=== PATIENT | male | born 1965 | race Caucasian/White ===

== ENCOUNTER 2016-12-11 11:03 | Emergency (ER) | payer BC ==
--- NOTE | 2016-12-11 11:42 | XR ---
EXAMINATION TYPE: XR ribs RT w pa chest x-ray DATE OF EXAM ORDERED: 12/11/2016 11:38 AM HISTORY: Pain. COMPARISON: None. FINDINGS: The lungs are overinflated but clear. Pleural spaces are clear. The heart is normal in siz e. No displaced rib fracture is seen. There is no evidence of pneumothorax. IMPRESSION: NO ACUTE INTRATHORACIC ABNORMALITY.
--- NOTE | 2016-12-11 11:54 | ED ---
General Adult HPI - General Chief complaint: Chest Pain Stated complaint: RIB PAIN/INJURY RT SIDE Time Seen by Provider: 12/11/16 11:11 Source: patient Mode of arrival: ambulatory Limitations: no limitations - History of Present Illness Initial comments: This 51-year-old white male presents with a complaint of some right lower rib pain. He states that he is trying to pull his boat in the other day. There apparently was some rough chavez. He felt a pop when he was pulling the boat and. He developed pain to his right lower ribs laterally. He states that the pain has been persistent ever since then. He further relates that it is worse with any movement, deep inspiration, or cough. He denies any direct trauma to the area. He denies any other injuries or complaints or modifying factors. He is worried about the possibility of a rib fracture. - Related Data Home Medications Medication Instructions Recorded Confirmed ALPRAZolam [Xanax] 0.25 mg PO BID PRN 12/11/16 12/11/16 buPROPion XL [Wellbutrin Xl] 300 mg PO DAILY 12/11/16 12/11/16 Previous Rx's Medication Instructions Recorded traMADol HCl [Ultram] 50 - 100 mg PO Q6H PRN #20 tab 12/11/16 Allergies Allergy/AdvReac Type Severity Reaction Status Date / Time No Known Allergies Allergy Verified 12/11/16 11:47 Review of Systems ROS Statement: Those systems with pertinent positive or pertinent negative responses have been documented in the HPI. ROS Other: All systems not noted in ROS Statement are negative. Past Medical History Past Medical History: No Reported History History of Any Multi-Drug Resistant Organisms: None Reported Past Surgical History: No Surgical Hx Reported Past Psychological History: No Psychological Hx Reported Smoking Status: Current every day smoker Past Alcohol Use History: None Reported Past Drug Use History: None Reported General Exam Limitations: no limitations General appearance: alert, in no apparent distress Respiratory exam: Present: normal lung sounds bilaterally, chest wall tenderness (There is tenderness present to the right lower ribs laterally. There is no ecchymosis or subcutaneous emphysema.). Absent: respiratory distress, wheezes, rales, rhonchi Cardiovascular Exam: Present: regular rate, normal rhythm Neurological exam: Present: alert, oriented X3 Psychiatric exam: Present: normal affect, normal mood Skin exam: Present: intact. Absent: rash Course Vital Signs 12/11/16 12/11/16 11:08 11:26 Temperature 97.4 F L Pulse Rate 74 Respiratory 16 20 Rate Blood Pressure 131/94 O2 Sat by Pulse 96 Oximetry Medical Decision Making - Medical Decision Making The patient was seen and examined. An x-ray of the ribs and chest was done. No acute abnormalities are identified per radiology. It is felt that he likely does have a rib strain. Is felt as though he is stable for discharge. His diagnosis was discussed in detail with him and he lives in no severe distress. Disposition Clinical Impression: Rib pain on right side Disposition: HOME SELF-CARE Condition: Good Instructions: Chest Wall Pain (ED) Additional Instructions: He also may take Motrin and/or Tylenol if needed for additional pain. Prescriptions: traMADol HCl [Ultram] 50 - 100 mg PO Q6H PRN #20 tab PRN Reason: Pain Referrals: Shola Tobias MD [Primary Care Provider] - 1-2 days Time of Disposition: 12:04
[2016-12-11 12:18] VITALS: BP 129/85; PULSE 66; RESP 18; TEMP 98.5
== END 2016-12-11 12:17 | disposition home or self-care (01) ==
LOC: EC 11:03
DX: R07.81 Pleurodynia (principal); F17.200 Nicotine dependence, unspecified, uncomplicated; Z79.899 Other long term (current) drug therapy; X50.9XXA Other and unspecified overexertion or strenuous movements or postures, initial encounter
CPT/HCPCS: 99283